=== PATIENT | male | born 1950 | race Hispanic/Latino ===

== ENCOUNTER 2017-03-05 19:41 | Emergency (ER) | payer SELFPAY ==
[2017-03-05 21:26] LABS: Basophils % (Auto) 0.6 % (0.0-1.8); Eosinophils % (Auto) 2.7 % (0.0-4.3); Hematocrit 42.5 % (35.5-45.6); Hemoglobin 14.4 gm/dl (11.8-15.2); Mean Corpuscular HGB Conc 34 % (32-34); Mean Corpuscular Hemoglobin 30 pg (28-32); Mean Corpuscular Volume 87 fl (84-94); Platelet Count 194 K/mm3 (140-440); Red Blood Count 4.89 M/mm3 (3.65-5.03); White Blood Count 9.5 K/mm3 (4.5-11.0)
[2017-03-05 21:48] LABS: Alanine Aminotransferase 18 units/L (7-56); Albumin 4.3 g/dL (3.9-5); Albumin/Globulin Ratio 1.2 %; Alkaline Phosphatase 71 units/L (35-129); Anion Gap 17 mmol/L; Blood Urea Nitrogen 8 mg/dL (9-20); Calcium 9.6 mg/dL (8.4-10.2); Carbon Dioxide 28 mmol/L (22-30); Chloride 101.6 mmol/L (98-107); Glucose 97 mg/dL (75-100); Lipase 30 units/L (13-60); Sodium 143 mmol/L (137-145); Total Protein 7.8 g/dL (6.3-8.2)
[2017-03-05 22:31] LABS: Bilirubin,Urine NEG (Negative); Blood,Urine NEG (Negative); Ketones,Urine 20 mg/dL (Negative); Leukocyte Esterase,Urine NEG (Negative); Mucus,Urine FEW /HPF; Nitrite,Urine NEG (Negative); Protein,Urine <15 mg/dL mg/dL (Negative); Urobilinogen,Urine < 2.0 mg/dL (<2.0); WBC,Urine < 1.0 /HPF (0.0-6.0)
--- NOTE | 2017-03-06 02:19 | Emergency Department Report ---
HPI - General Chief Complaint: Abdominal Pain Time Seen by Provider: 03/06/17 01:57 - HPI HPI: Room 1 The patient is a 66-year-old male presenting with a chief complaint of abdominal pain. The patient states is constant right-sided abdominal pain for the past 1-2 weeks. The patient states she at times feels a pressure in his penis. Patient states she feels very is a weak stream and difficulty urinating at times. Patient admits to urinary incontinence as well. Patient describes his pain as dull in nature. Patient admits to one episodes of nausea vomiting last night. The patient currently gives his pain a score of 5/10 Location: Abdomen Duration: 1-2 weeks Quality: Dull Pain Severity: 5/10 Modifying factors: [see above] Context: [see above] Mode of transportation: Patient drove himself to the emergency department and there are no visitors present ED Past Medical Hx - Past Medical History Hx Hypertension: Yes Additional medical history: Hyperthyroidism, coronary artery disease - Surgical History Additional Surgical History: Left Inguinal Hernia repair (1997) - Family History Family history: no significant - Social History Smoking Status: Former Smoker (none since 2007) Substance Use Type: Alcohol (occasional) - Medications Home Medications: Home Medications Medication Instructions Recorded Confirmed Last Taken Type Famotidine [Pepcid] 20 mg PO BID #30 tablet 03/06/17 Unknown Rx HYDROcodone/APAP 5-325 [[place] 1 - 2 each PO Q6HR PRN #12 tablet 03/06/17 Unknown Rx 5/325] ED Review of Systems ROS: Stated complaint: GROIN PAIN Other details as noted in HPI Comment: All other systems reviewed and negative Constitutional: denies: chills, fever Eyes: denies: eye pain, eye discharge, vision change ENT: denies: ear pain, throat pain Respiratory: denies: cough, shortness of breath, wheezing Cardiovascular: denies: chest pain, palpitations Gastrointestinal: abdominal pain, nausea, vomiting Genitourinary: denies: urgency, dysuria Musculoskeletal: denies: back pain, joint swelling, arthralgia Skin: denies: rash, lesions Neurological: denies: headache, weakness, paresthesias Psychiatric: denies: anxiety, depression Hematological/Lymphatic: denies: easy bleeding, easy bruising Physical Exam - Physical Exam Vital Signs: Vital Signs 03/05/17 03/06/17 21:00 01:56 Temperature 98.5 F 98.0 F Pulse Rate 74 76 Respiratory 16 19 Rate Blood Pressure 158/68 Blood Pressure 158/68 141/85 [Left] O2 Sat by Pulse 98 99 Oximetry Physical Exam: GENERAL: The patient is well-developed well-nourished male lying on stretcher not appearing to be in acute distress. [] HEENT: Normocephalic. Atraumatic. Extraocular motions are intact. Patient has moist mucous membranes. NECK: Supple. Trachea midline CHEST/LUNGS: Clear to auscultation. There is no respiratory distress noted. HEART/CARDIOVASCULAR: Regular. There is no tachycardia. There is no gallop rub or murmur. ABDOMEN: Abdomen is soft, with discomfort to palpation in the right upper quadrant. There is no rebound or guarding. Patient has normal bowel sounds. There is no abdominal distention. SKIN: There is no rash. There is no edema. There is no diaphoresis. NEURO: The patient is awake, alert, and oriented. The patient is cooperative. The patient has normal speech MUSCULOSKELETAL: There is no evidence of acute injury. ED Course Vital Signs 03/05/17 03/06/17 21:00 01:56 Temperature 98.5 F 98.0 F Pulse Rate 74 76 Respiratory 16 19 Rate Blood Pressure 158/68 Blood Pressure 158/68 141/85 [Left] O2 Sat by Pulse 98 99 Oximetry ED Medical Decision Making - Lab Data Result diagrams: 03/05/17 21:15 03/05/17 21:15 Laboratory Tests 03/05/17 03/05/17 03/05/17 21:15 21:15 22:00 WBC 9.5 RBC 4.89 Hgb 14.4 Hct 42.5 MCV 87 MCH 30 MCHC 34 RDW 14.0 Plt Count 194 Lymph % (Auto) 27.8 [place] % (Auto) 9.4 H Eos % (Auto) 2.7 Baso % (Auto) 0.6 Lymph # 2.6 [place] # 0.9 H Eos # 0.3 Baso # 0.1 Seg Neutrophils % 59.5 Seg Neutrophils # 5.6 Sodium 143 Potassium 4.0 Chloride 101.6 Carbon Dioxide 28 Anion Gap 17 BUN 8 L Creatinine 1.0 Estimated GFR > 60 BUN/Creatinine Ratio 8.00 Glucose 97 Calcium 9.6 Total Bilirubin 0.60 AST 26 ALT 18 Alkaline Phosphatase 71 Total Protein 7.8 Albumin 4.3 Albumin/Globulin Ratio 1.2 Lipase 30 Urine Color Jasmin Urine Turbidity Clear Urine pH 5.0 Ur Specific [place] 1.015 Urine Protein <15 mg/dl Urine Glucose (UA) Neg Urine Ketones 20 Urine Blood Neg Urine Nitrite Neg Urine Bilirubin Neg Urine Urobilinogen < 2.0 Ur Leukocyte Esterase Neg Urine WBC (Auto) < 1.0 Urine RBC (Auto) 2.0 Urine Mucus Few - Radiology Data Radiology results: report reviewed (CT abdomen and pelvis, right upper quadrant ultrasound), image reviewed (CT abdomen and pelvis, right upper quadrant ultrasound) CT abdomen and pelvis (read by radiologist)- there is no evidence of intestinal or urinary tract obstruction. No ileus or enteritis. The appendix is normal. Cholelithiasis. Infrarenal abdominal aortic aneurysm measures 2.9 cm - Differential Diagnosis cholecystitis, symptomatic cholelithiasis, appendicitis, renal colic, pepti Critical care attestation.: If time is entered above; I have spent that time in minutes in the direct care of this critically ill patient, excluding procedure time. ED Disposition Clinical Impression: Abdominal pain, Aneurysm of infrarenal abdominal aorta Disposition: TO HOME OR SELFCARE Is pt being admited?: No Does the pt Need Aspirin: No Condition: Stable Instructions: Acute Abdominal Pain (ED), Abdominal Aortic Aneurysm Repair (ED) Additional Instructions: Return to the emergency department immediately should you develop worsening symptoms, fever, inability to tolerate food or liquid or any other concerns. Prescriptions: Famotidine [Pepcid] 20 mg PO BID #30 tablet HYDROcodone/APAP 5-325 [[place] 5/325] 1 - 2 each PO Q6HR PRN #12 tablet PRN Reason: Pain Referrals: [facility] [Outside] - 3-5 Days FRED MENDOZA MD [Staff Physician] - 3-5 Days (Dr. Mendoza is a primary doctor. Please follow up with her to be established as a patient) TRISTAN SWIFT MD [Staff Physician] - 3-5 Days (Dr. swift is a vascular surgeon. Please follow up with him for further evaluation of your infrarenal abdominal aortic aneurysm of 2.9 cm diameter) GENNARO COVINGTON MD [Staff Physician] - 3-5 Days (Dr. Covington is a shingle packer. Please follow up with him for further evaluation of your abdominal pain) SEVEN CAST MD [Staff Physician] - 3-5 Days (Dr. Cast is a urologist. Please follow up with him for further evaluation of your difficulty urinating) Time of Disposition: 04:26
--- NOTE | 2017-03-06 02:43 | Ultrasound Report ---
FINAL REPORT PROCEDURE: US ABDOMEN LIMITED TECHNIQUE: Real-time sonography was performed of the gallbladder with image documentation. CPT 91642 HISTORY: right upper quadrant abdominal pain COMPARISON: No prior studies are available for comparison. FINDINGS: The gallbladder lumen is normal. The common bile duct measures 3 millimeters. The portions of the liver, right kidney and pancreas identified are normal.. IMPRESSION: Normal Examination
[2017-03-06] MEDS ORDERED: NACL ONE (02:46)
--- NOTE | 2017-03-06 03:50 | Cat Scan Report ---
FINAL REPORT PROCEDURE: CT ABDOMEN PELVIS W CON TECHNIQUE: Computerized axial tomography of the abdomen and pelvis was performed after the IV injection of iodinated nonionic contrast. HISTORY: right-sided abdominal pain COMPARISON: No prior studies are available for comparison. FINDINGS: Visualized lower thorax: No significant abnormality. Liver: Normal size and attenuation. Spleen: Normal size and attenuation. Gallbladder and biliary system: There is suspected stone within the gallbladder. No dilatation of the biliary ductal system. Pancreas: Normal. Adrenals: Normal. Kidneys: Normal. GI tract: The stomach is normal. The small bowel has a normal appearance without obstruction, ileus or enteritis. The cecum, appendix and colon are normal.. Lymph nodes and mesentery: Normal. Vasculature: There is an infrarenal abdominal aortic aneurysm this measures 2.9 centimeters. Minimal atherosclerosis of the aorta and branching vessels.. Bladder: Normal. Reproductive organs: Normal. Peritoneum: No free fluid. Musculoskeletal structures: No significant abnormality. Other: None. IMPRESSION: There is no evidence of intestinal or urinary tract obstruction. No ileus or enteritis. The appendix is normal. Cholelithiasis. Infrarenal abdominal aortic aneurysm measures 2.9 centimeters
[2017-03-06 04:20] VITALS: BP 120/68
== END 2017-03-06 05:05 | disposition home or self-care (01) ==
LOC: ED 19:41
DX: R10.11 Right upper quadrant pain (principal); I71.4 Abdominal aortic aneurysm, without rupture; E05.90 Thyrotoxicosis, unspecified without thyrotoxic crisis or storm; I25.10 Atherosclerotic heart disease of native coronary artery without angina pectoris; I10 Essential (primary) hypertension; Z87.891 Personal history of nicotine dependence
CPT/HCPCS: 36415; 74177; 76705; 80053; 81001; 83690; 85025; 99284; Q9967